=== PATIENT | male | born 1985 | race Two or more races ===

== ENCOUNTER 2020-05-15 21:37 | Inpatient (IN) | payer OTHER ==
[~2020-05-15] VITALS: Ht 170.2 cm; Wt 72.2 kg
[2020-05-15 23:44] LABS: Basophils # (auto) 0 10 ^3/uL (0-0.2); Basophils % (auto) 0.2 % (0.0-2.0); Eosinophils # (auto) 0 10 ^3/uL (0-0.8); Eosinophils % (auto) 0.5 % (0.0-7.0); Hematocrit 41.2 % (41.0-53.0); Hemoglobin 13.7 g/dL (13.5-17.5); Lymphocytes # (auto) 1.7 10 ^3/uL (0.4-5.4); Mean Corpuscular Hemoglobin 27.2 pg (28.0-32.0); Mean Corpuscular Hgb Conc. 33.2 g/dL (32.0-36.0); Mean Corpuscular Volume 81.9 fL (80.0-100.0); Monocytes # (auto) 0.4 10 ^3/uL (0-1.3); Monocytes % (auto) 7.9 % (0.0-12.0); Neutrophils # (auto) 3.4 10 ^3/uL (1.6-8.6); Neutrophils % (auto) 61.4 % (37.0-80.0); Nucleated Red Blood Cells % 0.1 %; Platelet Count (auto) 239 10^3/uL (140-450); Red Blood Cells 5.03 10^6/uL (4.5-5.90); Red Cell Distribution Width 13.5 % (11.8-14.3); White Blood Cell 5.6 10^3/uL (4.4-10.8)
[2020-05-15 23:57] LABS: INR 1.03 (0.9-1.15); Partial Thromboplastin Time 29.1 sec (23.0-31.2)
[2020-05-16 00:09] LABS: Alanine Aminotransferase 23 U/L (16-61); Albumin 3.8 g/dL (3.4-5.0); Anion Gap 7 (5-15); Aspartate Aminotransferase 15 U/L (15-37); BUN/Creatinine Ratio 15.5; Blood Urea Nitrogen 11 mg/dL (7-18); Calcium 8.8 mg/dL (8.5-10.1); Carbon Dioxide 25 mmol/L (21-32); Chloride 100 mmol/L (98-107); GFR African American 161 mL/min; GFR Non-African American 133 mL/min; Glucose 77 mg/dL (74-106); Potassium 3.3 mmol/L (3.5-5.1); Sodium 132 mmol/L (136-145)
[2020-05-16 00:14] LABS: Alkaline Phosphatase 79 U/L (45-117); Bilirubin, Total 0.5 mg/dL (0.2-1.0); Total Protein 7.9 g/dL (6.4-8.2)
[2020-05-16] MEDS ORDERED: DexAMETHasone SOD PHOS 10MG/1ML VIAL INJ IV ONE ×2 (00:15→01:30)
[2020-05-16] MEDS ORDERED: DOXYCYCLINE 100MG/250ML 250 ML IV ONE ×2 (00:15→01:30)
[2020-05-16] MEDS ORDERED: MORPHINE SULF INJ 2 MG/ML SYRINGE 1ML IV PRN (05:30)
[2020-05-16] MEDS ORDERED: NITROGLYCERIN 0.4 MG SL TAB SL PRN (05:30)
[2020-05-16] MEDS ORDERED: ALBUTEROL SULF HFA 90MCG INH 200DOSE IN SCH (06:00)
[2020-05-16 06:02] VITALS: BP 116/68
--- NOTE | 2020-05-16 10:46 | NUR ---
MS admit from [facility] admitted to tele/MS after SBAR received. Patient oriented to Elysia Magaña, primary RN, unit, room, bed, and unit policies regarding patient care and visiting hours. Patient weighed by bedscale and encouraged to call if they need something. All questions and concerns addressed, patient verbalized understanding. Note:
--- NOTE | 2020-05-16 10:52 | NUR ---
PAGE DR AMBRIZ PT IS COMPLAINING FROM MILD CHEST PAIN 09/15, PT IS A MEDICAL SURGICAL STATUS AND REQUIRES A HEART MONITOR, MESSAGE LEFT WITH [facility]OR[facility]
[2020-05-16 11:00] VITALS: BP 139/92
[2020-05-16] MEDS: cefTRIAXone 1GM/50ML D5W 50 ML IV SCH (11:14)
[2020-05-16] MEDS: CHOLECALCIFEROL (VITD3) 1,000UNIT=25mCg TAB PO SCH (11:15)
[2020-05-16] MEDS: ZINC SULFATE 220mg CAP or TAB PO SCH (11:15)
[2020-05-16] MEDS: methylPREDNISolone SOD SUCC 125 MG/2 ML VL IV SCH ×2 (11:15→21:18)
[2020-05-16] MEDS: ASCORBIC ACID 500 MG TAB PO SCH (11:15)
[2020-05-16] MEDS: AZITHROMYCIN 250 MG TAB PO SCH (11:16)
--- NOTE | 2020-05-16 11:16 | NUR ---
[facility] NASAL SWAP SAMPLE SENT TO LAB
[2020-05-16 12:31] VITALS: BP_SYST 132; BP_SYST 148; BP_DIAS 79; BP_DIAS 92
--- NOTE | 2020-05-16 14:00 | NUR ---
DR VALE IS HERE FOLLOWING UP ON PT, VERIFY IF PT NEED A TELE, DR VALE CONFIRM NO TELE
[2020-05-16] MEDS: ALBUTEROL SULF HFA 90MCG INH 200DOSE IN SCH ×2 (14:33→21:56)
[2020-05-16 17:15] VITALS: BP 130/77
--- NOTE | 2020-05-16 18:30 | NUR ---
PT CONTINUE STABLE, CONTINUE MONITORING
--- NOTE | 2020-05-16 20:00 | NUR ---
OPENING NOTE Received report from day shift RN. Patient is A&O X's 4 with no s/s of distress and reports no SOB/cough or pain. Patient reports some abdominal discomfort that is chronic problem but denies any N/V/D. Patient is on RA, respirations are even and unlabored. Educated patient on POC and to use call light when in need of any assistance. Patient verbalized understanding. Bed is in lowest/locked position with side rails up X's 2 and call light is within reach of patient. Guards are at bedside. Will continue care.
[2020-05-16 23:29] VITALS: BP 119/77
--- NOTE | 2020-05-17 01:09 | NUR ---
ROUNDS Patient is resting in bed on left side. Patient remains on room air. No s/s of distress noted. Respirations are even and regular. Will continue care.
[2020-05-17 05:14] VITALS: BP 115/60
[2020-05-17] MEDS: ALBUTEROL SULF HFA 90MCG INH 200DOSE IN SCH ×3 (07:14→21:43)
--- NOTE | 2020-05-17 08:00 | NUR ---
ASSESSMENT NOTE PT IS ALERT ORIENTED X4, RESTING IN BED COMFORTABLY, ABLE TO SELF REPOSITION AND VERBALIS HIS NEEDS, SELF REPOSITION, DENIES CHEST PAIN OR SHORTNESS OF BREATH, A METAL HAND CUFF NOTED AT LEFT WRIEST, CHECKED FOR CIRCULATION AT ALL TIMES, 2 GUARDS AT BED SIDE AT ALL TIMES, CALL LIGHT WITHIN REACH
[2020-05-17 09:00] VITALS: BP 116/71
[2020-05-17] MEDS: cefTRIAXone 1GM/50ML D5W 50 ML IV SCH (09:24)
[2020-05-17] MEDS: ASCORBIC ACID 500 MG TAB PO SCH (09:25)
[2020-05-17] MEDS: methylPREDNISolone SOD SUCC 125 MG/2 ML VL IV SCH ×2 (09:25→21:04)
[2020-05-17] MEDS: ZINC SULFATE 220mg CAP or TAB PO SCH (09:25)
[2020-05-17] MEDS: CHOLECALCIFEROL (VITD3) 1,000UNIT=25mCg TAB PO SCH (09:25)
[2020-05-17] MEDS: AZITHROMYCIN 250 MG TAB PO SCH (09:26)
[2020-05-17 13:00] VITALS: BP 116/71
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
[2020-05-17 17:00] VITALS: BP 118/76
--- NOTE | 2020-05-17 18:50 | NUR ---
PT CONTINUE STABLE, CONTINUE MONITORING, NO DISTRESS NOTED
--- NOTE | 2020-05-17 19:30 | NUR ---
OPENING NOTE Received report from day shift RN. Patient is resting in bed with no s/s of distress and reports no pain. Educated patient on POC and to use call light when in need of any assistance. Patient verbalized understanding. Bed is in lowest/locked position with side rails up X's 2 and call light is within reach of patient. Guards present at bedside. Will continue care.
[2020-05-17 22:00] VITALS: BP 149/83
[2020-05-18 05:00] VITALS: BP 109/64
[2020-05-18] MEDS: ALBUTEROL SULF HFA 90MCG INH 200DOSE IN SCH (06:43)
[2020-05-18 09:00] VITALS: BP 111/66
[2020-05-18 13:00] VITALS: BP 121/65
--- NOTE | 2020-05-18 14:28 | NUR ---
Discharge instructions given as ordered. Encourage to follow up with PMD as instructed. All questions and concerns addressed. Patient verbalized understanding. Medication reconciliation form completed and copy given to patient. Home medications held in Pharmacy returned to patient, and needed vaccines given. IV removed with catheter intact, pressure dressing applied. Patient taken to vehicle via wheelchair with all personal belongings, accompanied by staff and [employer]. No distress noted at time of departure.
== END 2020-05-18 14:28 | DRG 179 ==
LOC: ER 21:37 → EEVIPCON 21:37 → EDBD 21:37 → OVERFLOW 21:38 → EAST 05-16 10:54
PROVIDERS: ADMIT Internal Medicine; ATTEND Internal Medicine
DX: U07.1 COVID-19 (principal); R53.81 Other malaise; Z83.3 Family history of diabetes mellitus; Z87.11 Personal history of peptic ulcer disease; R43.9 Unspecified disturbances of smell and taste
CPT/HCPCS: 36415; 71045; 80053; 83605; 84484; 85025; 85379; 85610; 85730; 87040; 87081; 87426; 93005; 94640; 96365; 96375; 99291; G0378; J0696; J1100; J3490

== ENCOUNTER → 2021-04-26 | Outpatient (CLI) | payer OTHER | END | disposition home or self-care (01) | LOC: EDSTATUS 09:45 → LAB 09:45 | PROVIDERS: ATTEND Internal Medicine Gastroenterology | DX: Z01.818 Encounter for other preprocedural examination (principal); R19.4 Change in bowel habit; A04.8 Other specified bacterial intestinal infections ==